=== PATIENT | male | born 2000 ===

== ENCOUNTER 2019-01-17 11:24 | Emergency (ER) | payer OTHER ==
[2019-01-17 11:33] VITALS: BP 113/58; PULSE 70; RESP 18; O2SAT 100
[2019-01-17 12:14] VITALS: TEMP 97
--- NOTE | 2019-01-17 12:17 | ED PDOC ---
Lower Extremity Pain/Injury Time Seen by Provider: 01/17/19 12:10 Chief Complaint (Nursing): Lower Extremity Problem/Injury Chief Complaint (Provider): Right Toe Pain History Per: Patient, [employer] ([place], #[id number]) History/Exam Limitations: no limitations Onset/Duration Of Symptoms: Days (x1 year), Worse Since (x1 day) Current Symptoms Are (Timing): Still Present Additional Complaint(s): 18 year old male with history of ingrown toenails presents to the ED with mother for evaluation s/p dropping an object on his right great toe yesterday and sustaining 8/10 pain only minimally relieved by some pain meds, last dose last night. The pain is preventing him from wearing shoes, he states, but otherwise is able to walk and denies numbness and tingling. He reports that he usually has his ingrown toenails tended to by his doctor in [place], but has not seen him in a year. PMD: none in the country Past Medical History Reviewed: Historical Data, Nursing Documentation, Vital Signs Vital Signs: Last Vital Signs Temp 97 F L 01/17/19 11:32 Pulse 70 01/17/19 11:32 Resp 18 01/17/19 11:32 BP 113/58 L 01/17/19 11:32 Pulse Ox 100 01/17/19 11:32 - Medical History Other PMH: ingrown toenails - Surgical History Surgical History: No Surg Hx - Family History Family History: States: Unknown Family Hx - Living Arrangements Living Arrangements: With Family - Social History Current smoker - smoking cessation education provided: No Alcohol: None Drugs: Denies - Home Medications Home Medications: Ambulatory Orders Medication Instructions Recorded Cephalexin [Keflex] 500 mg PO TID 10 Days #30 capsule 01/17/19 Ibuprofen [Motrin Tab] 600 mg PO Q6 PRN #20 tab 01/17/19 - Allergies Allergies/Adverse Reactions: Allergies Allergy/AdvReac Type Severity Reaction Status Date / Time No Known Allergies Allergy Verified 01/17/19 12:10 Review of Systems ROS Statement: Except As Marked, All Systems Reviewed And Found Negative Musculoskeletal: Positive for: Foot Pain (right great toe) Neurological: Negative for: Numbness (or tingling) Physical Exam - Reviewed Nursing Documentation Reviewed: Yes Vital Signs Reviewed: Yes - Physical Exam Comments: GENERAL: Patient awake, alert, oriented x3 in no obvious distress. CARDIOVASCULAR: regular rate and rhythm RESPIRATORY: lungs cleared to auscultation bilaterally, (-) wheezing RIGHT LOWER EXTREMITY: capillary refill less than two seconds. DP pulses 2+. Patient able to wiggle all toes. (+) ingrown nail of great toe with some swell ing, ecchymosis, and tenderness to palpation, (-) purulent discharge. neurovascular intact. NEURO: as stated above. (-) motor or sensory deficits. - ECG O2 Sat by Pulse Oximetry: 100 (RA) Pulse Ox Interpretation: Normal Medical Decision Making Medical Decision Making: Time: 1213 Initial Impression: ingrown toenail of right great toe Initial Plan: --XR right foot --Motrin 600mg PO --Podiatry consult 1234 XR FINDINGS: BONES: Bone alignment and mineralization are normal. There is no acute displaced fracture or bone destruction. JOINTS: Normal. SOFT TISSUES: Normal. OTHER FINDINGS: None. IMPRESSION: No acute displaced fracture or dislocation. 1312 Spoke with Brad from podiatry who recommends starting patient on preventative antibiotics and having him follow up outpatient to clinic for ingrown nail treatment/nail removal. Discussed all results, diagnosis, treatment, return precautions and f/u with patient and pt's mother who verbalized agreement and understanding of plan and treatment using language line #[id number]. All questions answered. Surgical shoe provided for comfort. - Scribe Attestation: Documented by Carmen Maldonado acting as a scribe for Elias Trejo PA-C. Provider Scribe Attestation: All medical record entries made by the Scribe were at my direction and personally dictated by me. I have reviewed the chart and agree that the record accurately reflects my personal performance of the history, physical exam, medical decision making, and the department course for this patient. I have also personally directed, reviewed, and agree with the discharge instructions and disposition. Disposition - Clinical Impression Clinical Impression: Ingrown right big toenail, Contusion of toe of right foot - Patient ED Disposition Is Patient to be Admitted: No Counseled Patient/Family Regarding: Studies Performed, Diagnosis, Need For Follo wup, Rx Given - Disposition Referrals: Podiatry Clinic [Outside] Disposition: Routine/Home Disposition Time: 13:28 Condition: IMPROVED Additional Instructions: Regrese a la ED para sntomas nuevos o que empeoran, fiebre> 100.4, entumecimiento u hormigueo, aumento del enrojecimiento o hinchazn. Lorenza un seguimiento con la clnica de podologa jerilyn se indica. [place] antibiticos segn lo prescrito hasta terminar. [place] ibuprofeno para el dolor. Use zapato mark para el apoyo. Sumrjase en agua tibia 2 o 3 veces al da.Return to ED for new or worsening symptoms, fever >100.4, numbness or tingling, increase redness or swelling. Follow up with the podiatry clinic as listed. Take antibiotics as prescribed until finished. Take ibuprofen for pain. Wear hard shoe for support. Soak toe in warm water 2-3 times a day. Prescriptions: Cephalexin [Keflex] 500 mg PO TID 10 Days #30 capsule Ibuprofen [Motrin Tab] 600 mg PO Q6 PRN #20 tab PRN Reason: Pain, Moderate (4-7) Instructions: Ingrown Toenail, Contusion (DC), Toe Injury Forms: [employer] ([place]azi) Print Language: AZERI - POA Present On Arrival: None
--- NOTE | 2019-01-17 12:37 | RAD ---
PROCEDURE: Radiographs of the right great toe. TECHNIQUE:: AP radiograph of the right foot, with oblique and lateral view of the right great toe. COMPARISON: None. TECHNIQUE: 3 views obtained. FINDINGS: BONES: Bone alignment and mineralization are normal. There is no acute displaced fracture or bone destruction. JOINTS: Normal. SOFT TISSUES: Normal. OTHER FINDINGS: None. IMPRESSION: No acute displaced fracture or dislocation.
== END 2019-01-17 14:16 | disposition home or self-care (01) ==
LOC: H.ER 11:24
DX: L60.0 Ingrowing nail (principal); S90.31XA Contusion of right foot, initial encounter; W20.8XXA Other cause of strike by thrown, projected or falling object, initial encounter